=== PATIENT | female | born 1955 | race Caucasian/White ===

== ENCOUNTER → 2017-06-08 | Outpatient (CLI) | payer BC | END | disposition home or self-care (01) | LOC: MAMMO 09:15 | DX: Z12.31 Encounter for screening mammogram for malignant neoplasm of breast (principal) | CPT/HCPCS: G0202 ==

== ENCOUNTER → 2017-06-19 | Outpatient (CLI) | payer BC | END | disposition home or self-care (01) | LOC: MAMMO 09:44 | DX: R92.8 Other abnormal and inconclusive findings on diagnostic imaging of breast (principal) | CPT/HCPCS: 77065 ==

== ENCOUNTER → 2018-09-26 | Outpatient (CLI) | payer BC ==
--- NOTE | 2018-09-26 09:49 | RAD ---
DATE: 09/26/2018 EXAM: MAMMO DOLORES SCREENING BILATERAL HISTORY: Routine screening COMPARISON: 06/08/2017, 06/19/2017 This study was interpreted with the benefit of Computerized Aided Detection (CAD). Breast Density: SCATTERED The breast parenchyma shows scattered fibroglandular densities. Breast parenchyma level B. FINDINGS: 2-D and 3-D tomosynthesis imaging was performed in CC and MLO projections. There is an unchanged small nodule in the posteromedial aspect of the right breast. No new or enlarging breast densities are seen. No suspicious microcalcifications are evident. IMPRESSION: Stable mammograms without evidence of malignancy. BI-RADS CATEGORY: 2 BENIGN FINDING(S) RECOMMENDED FOLLOW-UP: 12M 12 MONTH FOLLOW-UP PQRS compliance statement: Patient information was entered into a reminder system with a target due date for the next mammogram. Mammography is a sensitive method for finding small breast cancers, but it does not detect them all and is not a substitute for careful clinical examination. A negative mammogram does not negate a clinically suspicious finding and should not result in delay in biopsying a clinically suspicious abnormality. "Our facility is accredited by the [employer] Mammography [employer]."
== END | disposition home or self-care (01) ==
LOC: MAMMO 08:16
PROVIDERS: ATTEND Family Medicine
DX: Z12.31 Encounter for screening mammogram for malignant neoplasm of breast (principal)
CPT/HCPCS: 77063; 77067

== ENCOUNTER → 2019-09-23 | Outpatient (CLI) | payer BC ==
--- NOTE | 2019-09-23 09:38 | KCIC ---
Transabdominal and transvaginal ultrasound of the pelvis. HISTORY: Abnormal vaginal bleeding, N 93.9 Transabdominal ultrasound was performed. Bladder was not well-distended. There is a uterine mass.. Ovaries are not identified. Transvaginal imaging was performed for further evaluation. There is a central mass within the uterus measuring 4.3 x 4.1 cm. A large leiomyoma is most likely although a endometrial tumor is possible. There is flow within the lesion with color imaging. The lesion obscures the endometrium. Right ovary was identified measuring 1.4 x 1.9 x 1.4 cm. There is flow in the right ovary with color imaging and Doppler. Left ovary measured 1.7 x 1.7 x 1.9 cm. Left ovary was poorly visualized. There was flow with Doppler in the left ovary. IMPRESSION: 1. Central uterine mass, leiomyoma or endometrial cancer are possible. 2. Normal ovaries. Electronically signed by: Raymond Viera MD (09/23/2019 9:35 AM) [id number]
== END | disposition home or self-care (01) ==
LOC: KCIC US 08:38
PROVIDERS: ATTEND Nurse Practitioner Family
DX: N95.0 Postmenopausal bleeding (principal); Z87.42 Personal history of other diseases of the female genital tract
CPT/HCPCS: 76830; 76856

== ENCOUNTER → 2019-10-30 | Outpatient (CLI) | payer BC ==
[~2019-10-30] MED LIST: DOCU-109 PO; IBUP-1060 PO; LISI1TAB20 PO; MONT10TA49 PO; OXYC1TAB15 PO; SERT50TA PO; SIMV40TA18 PO
[2019-10-30 13:51] LABS: BASO # 0.1 x10^3/uL (0.0-0.2); BASO % 1 % (0-3); EOS # 0.1 x10^3/uL (0.0-0.7); EOS % 2 % (0-3); HEMATOCRIT 39.4 % (36.0-47.0); HEMOGLOBIN 13.1 g/dL (12.0-15.5); LYMPH # 1.5 x10^3/uL (1.0-4.8); LYMPH % 25 % (24-48); MEAN CORPUSCULAR HEMOGLOBIN 27 pg (25-35); MEAN CORPUSCULAR HGB CONC 33 g/dL (31-37); MEAN CORPUSCULAR VOLUME 82 fL (79-100); MONO # 0.6 x10^3/uL (0.0-1.1); MONO % 10 % (0-9); NEUT # 3.8 x10^3/uL (1.8-7.7); NEUT % 62 % (31-73); PLATELET COUNT 272 x10^3/uL (140-400); RED BLOOD COUNT 4.81 x10^6/uL (3.50-5.40); RED CELL DISTRIBUTION WIDTH 14.1 % (11.5-14.5)
[2019-10-30 14:05] LABS: CALCIUM 9.3 mg/dL (8.5-10.1); GFR 56.2; POTASSIUM 3.3 mmol/L (3.5-5.1)
== END | disposition home or self-care (01) ==
LOC: SURGPAT 12:55
PROVIDERS: ATTEND Obstetrics & Gynecology
DX: N95.0 Postmenopausal bleeding (principal)
CPT/HCPCS: 36415; 80048; 85025; U0003-CS

== ENCOUNTER 2019-11-04 06:03 | Observation (INO) | payer BC ==
[~2019-11-04] VITALS: Ht 151.1 cm; Wt 78.0 kg
[2019-11-04] VITALS (11 sets, daily range): BP systolic 88–105; BP diastolic 37–59
[~2019-11-04 06:03] MED LIST changes: +CLINDAMYCIN 900MG PREMIX 50 ML IV PRN; +DEXTROSE 5% IV PRN; -DOCU-109 PO; +GENTAMICIN SULFATE IV PRN; -IBUP-1060 PO; -OXYC1TAB15 PO
[2019-11-04] MEDS: IV RINGERS,LACTATED 1000ML 1,000 ML IV SCH ×2 (06:49→10:28)
[2019-11-04] MEDS ORDERED: LIDOCAINE 1% PF 2 ML VIAL. ID PRN (07:00)
[2019-11-04] MEDS ORDERED: ONDANSETRON PF 4 MG/2 ML VIAL. IV PRN (07:00)
[2019-11-04] MEDS ORDERED: fentaNYL PF VIAL 100 MCG/2 ML VIAL IV PRN ×2 (07:00)
[2019-11-04] MEDS ORDERED: PROCHLORPERAZINE 10 MG/2 ML VIAL. IV PRN (07:00)
[2019-11-04] MEDS ORDERED: fentaNYL PF VIAL 250 MCG/5 ML VIAL ONE (07:33)
[2019-11-04] MEDS ORDERED: ROCURONIUM 50 MG/5 ML VIAL. ONE (07:33)
[2019-11-04] MEDS ORDERED: DEXAMETHASONE SOD PHOS 4 MG/ML VIAL ONE (08:04)
[2019-11-04] MEDS ORDERED: SEVOFLURANE > 120 MINUTES. IH ONE (08:04)
[2019-11-04] MEDS ORDERED: ONDANSETRON PF 4 MG/2 ML VIAL. ONE (08:04)
[2019-11-04] MEDS ORDERED: LIDOCAINE 2% PF 5 ML VIAL. ONE (08:04)
[2019-11-04] MEDS ORDERED: PROPOFOL 10 MG/ML (20ML) VIAL. IV ONE (08:04)
[2019-11-04] MEDS ORDERED: GLYCOPYRROLATE 1 MG/5 ML VIAL. ONE (09:25)
[2019-11-04] MEDS ORDERED: NEOSTIGMINE METHYLSULFATE 5 MG/5 ML SYRINGE. ONE (09:25)
[2019-11-04] MEDS ORDERED: IV NORMAL SALINE 1000ML BAG 1,000 ML IV SCH (09:31)
[2019-11-04] MEDS ORDERED: IV DEXTROSE 5 %-0.45 % NACL 1,000 ML IV SCH (09:31)
[2019-11-04] MEDS ORDERED: IBUPROFEN 200 MG TABLET. PO PRN (09:45)
[2019-11-04] MEDS ORDERED: diphenhydrAMINE HCL 25 MG CAPSULE PO PRN (09:45)
[2019-11-04] MEDS ORDERED: NALOXONE 0.4 MG/ML VIAL. IV PRN (09:45)
[2019-11-04] MEDS ORDERED: KETOROLAC 15 MG/ML VIAL. IV PRN (09:45)
[2019-11-04] MEDS ORDERED: DEXTROSE 50% 25 GM / 50ML DISP.SYRIN. IV PRN (09:45)
[2019-11-04] MEDS ORDERED: diphenhydrAMINE 50 MG/ML VIAL IV PRN (09:45)
[2019-11-04] MEDS ORDERED: MORPHINE SULFATE 2 MG/ML VIAL. IV PRN ×2 (09:45)
[2019-11-04] MEDS ORDERED: oxyCODONE/APAP 5/325 1 TAB TABLET PO PRN (09:45)
[2019-11-04] MEDS ORDERED: 0.9 % SODIUM CHLORIDE 10 ML DISP.SYRIN. IV PRN (09:45)
[2019-11-04] MEDS ORDERED: KETOROLAC 30 MG/ML VIAL. ONE (10:27)
--- NOTE | 2019-11-04 11:06 | PDOC4 ---
OPERATIVE NOTE: PreOp Dx: 1. PMB, 2. Uterine mass, 3. Uterine polyp, 4. s/p BTL PostOp Dx: same Procedure: LAVH/BS0 Surgeon: Christina Alvarez Anesthesia: GETA EBL: 200cc Fluids: 1000 UOP: 100 (clear) Complications: none Findings: Post tubal changes, Nml appearing uterus and ovaries. Path: Uterus, cervix, tubes, and ovaries SERGEI ALVAREZ MD November 04, 2019 11:06
--- NOTE | 2019-11-04 11:42 | OP ---
DATE OF SURGERY: 11/04/2019 PREOPERATIVE DIAGNOSES: 1. Postmenopausal bleeding. 2. Uterine mass. 3. Uterine polyps. 4. Status post tubal ligation. POSTOPERATIVE DIAGNOSES: 1. Postmenopausal bleeding. 2. Uterine mass. 3. Uterine polyps. 4. Status post tubal ligation. PROCEDURE: Laparoscopic-assisted vaginal hysterectomy with bilateral salpingo-oophorectomy. SURGEON: Yuri Alvarez MD ANESTHESIA: General endotracheal intubation. ESTIMATED BLOOD LOSS: 200 mL. FLUIDS: 1000 mL. URINE OUTPUT: 100 mL. COMPLICATIONS: None. FINDINGS: Post-tubal changes with normal-appearing uterus and ovaries. PATHOLOGY: Cervix, uterus, tubes, and ovaries. DESCRIPTION OF PROCEDURE: The patient was taken to the operating room where general endotracheal intubation was obtained without difficulty. The patient was prepped and draped in a normal sterile fashion. Attention was first turned to the vagina where a speculum was placed to visualize the cervix. Anterior lip of the cervix was then grasped with a single tooth tenaculum. An acorn uterine manipulator was then placed into the cervix. At that point, the speculum was removed. A Vinson catheter was then placed. Attention was then turned to the abdomen where a 5-mm skin incision was made in the infraumbilical fold. A Veress needle was introduced into the intra-abdominal cavity. The intraabdominal cavity was insufflated to 15 mmHg. Once it had been sufficiently insufflated, the Veress needle was removed and a 5-mm trocar was then placed. Intraabdominal placement was confirmed with the laparoscope. At that point, survey of the pelvis revealed normal anatomy with the exception of post-tubal changes. The uterine mass was not appreciated during the survey. At that point, a second trocar was then placed on the left approximately two-thirds between the ischial spine and the umbilicus, first by making a 5-mm skin incision followed by placing the trocar under direct visualization of the laparoscope. Attention was then turned to the right side where a 5-mm skin incision was placed approximately two-thirds between the ischial spine and the umbilicus. Once this had been made, the 5-mm trocar was then placed under direct visualization of the laparoscope. Attention was first turned to the left where the left tube was grasped and elevated. At that point, the ovarian vessels were easily identified. The LigaSure device was used to coagulate and cut through the ovarian vessels to reach the uterine pedicles. At that point, the LigaSure device was used to cut through the round ligament. Once the round ligament and the ovarian pedicles were ligated, the LigaSure device was used to serially coagulate and cut the uterine pedicles to the level of the uterine artery. At that point, the peritoneum was undermined to allow for the creation of a bladder flap. Bladder flap was then brought to the midline. Additional bites were then taken of the uterine pedicles on the left with the LigaSure device. At that point, attention was then turned to the right where again the right tube was then grasped and elevated to allow for identification of the right ovarian pedicle. The LigaSure device was used to coagulate and cut the ovarian pedicle. Once this was free, the right round ligament was then coagulated and cut. At that point, the uterine pedicles were then serially coagulated and cut with the LigaSure device to the level of the uterine arteries. At that point, the peritoneum was undermined on the right to complete the bladder flap. Once this had been accomplished, additional bites were then taken of the right uterine pedicles. Once good hemostasis was noted, all the instruments were removed and attention was then turned to the vagina where the cervix was circumferentially cut with the Bovie device. At that point, the pubovesicocervical fascia was then dissected from the bladder with Metzenbaum scissors. Once the anterior cul-de-sac had been entered, attention was then turned to the posterior cul-de-sac where Corey scissors were used to enter the peritoneum posteriorly. At that point, the Mona clamps were used to grasp the left uterosacral ligament. This was then cut and tagged with 0 Vicryl. This was performed on the right side where the uterine-sacral ligament was then grasped with a Mona clamp, cut and tagged. Once this had been performed, the uterus was serially clamped, cut, and tied until all pedicles were free. At that point, the uterus was attempted to be delivered. Due to the size of the uterus and the vagina, the amount of traction necessary for the uterus to be removed caused tearing of the cervix from the uterus. The uterus was then grasped with the Leahey clamps and was able to be delivered. Due to the amount of force, the right tube was sheared from the uterus. It was retrieved and sent with the rest of the specimen. Due to the serosal tears, the fibroid could be identified and appeared benign in state. Once the uterus was delivered, good hemostasis was noted. The vaginal cuff was then closed first by making a jqwgfp-nm-lopzh stitch on the left lateral edge with the second pass including the left uterosacral ligament. This was then tagged. Attention was then turned to the right side of the vaginal cuff where a edvxoj-un-tejrv stitch was then placed at the lateral edge with the second pass including the right uterosacral ligament. Two additional ienyez-is-cqbto stitches were used to close the remainder of the cuff. The cuff was then irrigated. Good hemostasis was noted. All the stitches were cut. Attention was then turned to the abdomen once again. The abdomen was insufflated once again. Survey of the vaginal cuff revealed good hemostasis. The ureters were then observed to be peristalsing. The pelvis was then irrigated. All the instruments were removed as well as the trocars. The laparoscopic incisions were then closed with 4-0 Monocryl. At that point, the patient tolerated the procedure well and was taken to the recovery room in stable condition. Sponges, laps, and needles were correct x 3. YURI ALVAREZ MD DR: BLAKE/hope JOB#: [id number] / [id number] AIXA
[2019-11-04] MEDS ORDERED: DOCUSATE SODIUM 100 MG CAPSULE. PO SCH (21:00)
[2019-11-04] MEDS: oxyCODONE/APAP 5/325 1 TAB TABLET PO PRN (22:45)
[2019-11-05] MEDS: oxyCODONE/APAP 5/325 1 TAB TABLET PO PRN ×3 (02:57→14:01)
[2019-11-05 03:01] VITALS: BP 99/44
[2019-11-05 05:54] LABS: BASO % 0 % (0-3); EOS % 0 % (0-3); HEMATOCRIT 32.4 % (36.0-47.0); LYMPH % 12 % (24-48); MEAN CORPUSCULAR HEMOGLOBIN 28 pg (25-35); MEAN CORPUSCULAR HGB CONC 34 g/dL (31-37); MEAN CORPUSCULAR VOLUME 83 fL (79-100); MONO # 0.8 x10^3/uL (0.0-1.1); MONO % 10 % (0-9); NEUT # 6.5 x10^3/uL (1.8-7.7); NEUT % 78 % (31-73); PLATELET COUNT 232 x10^3/uL (140-400); RED BLOOD COUNT 3.93 x10^6/uL (3.50-5.40); RED CELL DISTRIBUTION WIDTH 14.3 % (11.5-14.5); WHITE BLOOD COUNT 8.3 x10^3/uL (4.0-11.0)
[2019-11-05 06:13] LABS: CALCIUM 8.4 mg/dL (8.5-10.1); GFR 56.2
[2019-11-05 07:21] VITALS: BP 103/43
[2019-11-05] MEDS ORDERED: OXYC1TAB15 PO (08:39)
[2019-11-05] MEDS ORDERED: IBUP-1060 PO (08:39)
[2019-11-05] MEDS ORDERED: DOCU-109 PO (08:39)
--- NOTE | 2019-11-05 10:15 | PDOC ---
DIRECTOR OF ENTERPRISE ARCHITECTURE PROGRESS NOTE Subjective: Pt with good pain control. Aslhey PO. Vinson removed this am, yet to void. Objective: Objective: dressing dry Vital Signs: Vital Signs Date Time Temp Pulse Resp B/P (MAP) Pulse Ox O2 Delivery O2 Flow Rate FiO2 11/04/19 09:45 Mask 10 11/04/19 09:45 97.1 75 20 88/55 100 97.1 Vital Signs Date Time Temp Pulse Resp B/P (MAP) Pulse Ox O2 Delivery O2 Flow Rate FiO2 11/05/19 09:17 18 11/05/19 07:21 98.3 67 103/43 (63) 95 Room Air 98.3 11/04/19 11:30 2.0 Labs: Laboratory Tests Test 11/05/19 04:40 11/05/19 05:45 White Blood Count 8.3 x10^3/uL (4.0-11.0) Red Blood Count 3.93 x10^6/uL (3.50-5.40) Hemoglobin 11.0 g/dL (12.0-15.5) L Hematocrit 32.4 % (36.0-47.0) L Mean Corpuscular Volume 83 fL (79-100) Mean Corpuscular Hemoglobin 28 pg (25-35) Mean Corpuscular Hemoglobin Concent 34 g/dL (31-37) Red Cell Distribution Width 14.3 % (11.5-14.5) Platelet Count 232 x10^3/uL (140-400) Neutrophils (%) (Auto) 78 % (31-73) H Lymphocytes (%) (Auto) 12 % (24-48) L Monocytes (%) (Auto) 10 % (0-9) H Eosinophils (%) (Auto) 0 % (0-3) Basophils (%) (Auto) 0 % (0-3) Neutrophils # (Auto) 6.5 x10^3/uL (1.8-7.7) Lymphocytes # (Auto) 1.0 x10^3/uL (1.0-4.8) Monocytes # (Auto) 0.8 x10^3/uL (0.0-1.1) Eosinophils # (Auto) 0.0 x10^3/uL (0.0-0.7) Basophils # (Auto) 0.0 x10^3/uL (0.0-0.2) Sodium Level 138 mmol/L (136-145) Potassium Level 4.0 mmol/L (3.5-5.1) Chloride Level 101 mmol/L (98-107) Carbon Dioxide Level 30 mmol/L (21-32) Anion Gap 7 (6-14) Blood Urea Nitrogen 15 mg/dL (7-20) Creatinine 1.0 mg/dL (0.6-1.0) Estimated GFR (Cockcroft-Gault) 56.2 Glucose Level 115 mg/dL (70-99) H Calcium Level 8.4 mg/dL (8.5-10.1) L Laboratory Tests 11/05/19 04:40 Laboratory Tests 11/05/19 05:45 Laboratory Tests 11/05/19 04:40 11/05/19 05:45 Physical Exam: GENERAL: No apparent distress. Alert and oriented. HEENT: Head normocephalic, atraumatic. NECK: Supple LUNGS: Clear to auscultation. HEART: RRR, S1, S2 present, pulses intact ABDOMEN: Soft, positive bowel sounds. EXTREMITIES: No cyanosis or edema. NEUROLOGIC: Normal speech, normal tone PSYCHIATRIC: Normal affect, normal mood. SKIN: No ulceration. Assessment & Plan: A/P 64y POD #1 s/p LAVH/BSO 1.) PO doing well, path pending 2.) Indication PMB, uterine mass, uterine polyp 3.) Hgb 13.1 -> 11.0 4.) Menopause - on Sertraline 5.) HTN, hypercholesterolemia 6.) Cont PO care SERGEI ALVAREZ MD November 05, 2019 10:15
[2019-11-05 11:12] VITALS: BP 139/49
[2019-11-05 15:30] VITALS: BP 123/59
--- NOTE | 2019-11-05 16:00 | NUR ---
Discharge instructions given to pt. Pt verbalized understanding. Pt discharged home via wheelchair to waiting outside to take pt home.
--- NOTE | 2019-11-05 18:06 | PATHOLOGY ---
[facility] Accession Number: [id number] . 01 Material submitted: . uterus - UTERUS, LEFT AND RIGHT FALLOPIAN TUBES AND OVARIES. Modifiers: bilateral . 01 Clinical history: . Postmenopausal bleeding . 02 Diagnosis: Uterine corpus with attached left fallopian tube and ovary, detached uterine cervix, and detached right fallopian tube and ovary, laparoscopic assisted vaginal hysterectomy with bilateral salpingo-oophorectomy: - Leiomyomas, uterine corpus, submucosal/intramural/subserosal, multiple, the largest measuring 4.7 cm in greatest dimension. - Squamous metaplasia of endocervix, focal. - Nabothian cysts, cervix. - Atrophic endometrium. - Small sessile endometrial polyp. - Adenomyosis, uterine corpus, focal. - Right paratubal endometriosis, focal. - Focal endometriosis of right ovary. - Small simple serous cysts of bilateral ovaries, multiple. (JPM:leonard; 11/05/2019) . . [facility] [place] 11/05/2019 1450 Local . 02 Comment: There is no atypia or evidence of malignancy. (JPM:leonard; 11/05/2019) . 02 Electronically signed: . Conrad Carlisle MD, Pathologist NPI- [id number] . 01 Gross description: . The specimen is received in formalin labeled " Jodee Corrales, uterus, L fallopian tube, L ovary, cervix, R fallopian tube, R ovary". Received is a 100 g previously incised/torn uterine corpus measuring 6.6 x 6.5 x 4.0 cm with an attached adnexa weighing 5 g, detached cervical stump weighing 16 g, and detached adnexa weighing 5 g. The uterine serosa is pink-goetz, disrupted and wrinkled in appearance. The uterine corpus cannot be oriented. A large fibroid is identified attached to the inside of the uterine corpus measuring 4.7 cm. Opening of the uterine corpus reveals pale goetz, glistening endometrium, however, the cavity is not distinct. The endometrium measures 0.1 cm in thickness. Serial sectioning reveals a goetz-pink, trabeculated myometrium measuring up to 2.0 cm in thickness displaying two subserosal and submucosal fibroids measuring 0.4 cm each. Sectioning through the large fibroid reveals white, trabeculated cut surfaces with no gross evidence of degeneration or necrosis. . The cervical stump measures 5.3 x 2.4 x 2.0 cm in greatest dimensions and cannot be oriented. The 0.5 cm cervical os is surrounded by pink-morgan, smooth ectocervical mucosa. One half of the paracervical margin is inked black. The cervix is opened to reveal a pale goetz, corrugated to cystic endocervical canal measuring 4.1 cm in length. A fibroid is identified at the top of the endocervix. . The attached adnexa consists of a fimbriated fallopian tube measuring 4.9 cm in length by 0.5 cm in diameter attached to a 2.4 x 1.3 x 0.7 cm ovary. Sectioning through the fallopian tube reveals a pinpoint lumen. Sectioning through the ovary reveals pale goetz, normal ovarian stroma. . The detached adnexa consists of a fimbriated fallopian tube measuring 3.4 cm in length by 0.5 cm in diameter attached to a 2.7 x 1.3 x 1.3 cm ovary. Sectioning through the fallopian tube reveals a patent lumen. Sectioning through the ovary reveals pale goetz, normal ovarian stroma. The specimen is submitted representatively as follows: . A1-A2 cervix and opposite cervix A3-A4 endomyometrium and opposite endomyometrium A5 international representative sections of subserosal, submucosal fibroids, as well as fibroid at the top of the endocervical canal A6 international representative sections of large fibroid A7 attached adnexa A8 detached adnexa. (CAA; 11/04/2019) QA/[facility] 11/05/2019 1444 Local . 02 Pathologist provided ICD-10: D25.0, D25.1, D25.2, N88.8, N84.0, N80.0, N83.201, N83.202 . 02 CPT . 359829 Specimen Comment: A courtesy copy of this report has been sent to [phone], [phone] Specimen Comment: [id number] Specimen Comment: Report sent to / DR CHASE Performed at: 01 [facility] [address], [place] [id number] MD Walter Banks MD Phone: [phone] Performed at: 02 [facility] [address] [place], [place] [id number] MD Conrad Carlisle MD Phone: [phone]
--- NOTE | 2019-11-06 10:22 | DS ---
DATE OF DISCHARGE: 11/05/2019 ADMISSION DIAGNOSES: 1. Postmenopausal bleeding with thickened endometrial stripe. 2. Uterine mass. 3. Uterine polyp. 4. Status post bilateral tubal ligation. 5. PENICILLIN ALLERGY. 6. Hypertension. 7. Hypercholesterolemia. DISCHARGE DIAGNOSES: 1. Postmenopausal bleeding with thickened endometrial stripe. 2. Uterine mass. 3. Uterine polyp. 4. Status post bilateral tubal ligation. 5. PENICILLIN ALLERGY. 6. Hypertension. 7. Hypercholesterolemia. PROCEDURE: Laparoscopic-assisted vaginal hysterectomy with bilateral salpingo-oophorectomy. BRIEF HOSPITAL COURSE: The patient is a 64-year-old 3, para 3-0-0-3, who presented for scheduled surgery. The patient originally presented to the office on 09/29 for evaluation of postmenopausal bleeding. Prior to visit, the patient had underwent an ultrasound revealing a central mass in the uterus measuring 4.3 x 4.1 cm. It was thought to be most likely a large leiomyoma, but Radiology could not rule out a possible endometrial tumor. An endometrial biopsy was performed in the office. At the time of biopsy, it was noted that the patient had a polyp exiting the cervical os that was biopsied as well. Both of which returned back negative. At the followup appointment on 10/06, the patient's treatment options were reviewed. Due to the uncertainty of the uterine mass being a possible sarcoma, the patient was leaning towards hysterectomy. Also, at that visit, we discussed the risks, benefits and alternatives of bilateral salpingo- oophorectomy. Since the patient was greater than 45 years old, decision was made to remove the ovaries along with the uterus. The patient underwent said procedure on 11/04/2019. See operative note for full detail. By postoperative day #1, the patient was meeting all discharge criteria and desired discharge home. Of note, the patient's hemoglobin prior to the procedure was 13.1 and postop was found to be 11.0. DISCHARGE INSTRUCTIONS: The patient was told not to lift anything greater than 20 pounds. Pelvic rest for [address] on narcotics. CALL IF: The patient is to call if she had fevers, chills, nausea, vomiting, abdominal pain or any additional questions or concerns. FOLLOWUP APPOINTMENT: The patient was to follow up on 11/11/2019 at 10:00 for a postop appointment. DISCHARGE MEDICATIONS: The patient was given a prescription for Percocet 5; 15 pills, Motrin 800 mg; 30 pills and Colace 100 mg; 30 pills. SERGEI ALVAREZ MD DR: BLAKE/hope JOB#: [id number] / [id number] AIXA
== END 2019-11-05 16:00 | disposition home or self-care (01) ==
LOC: SURG 06:03 → 3 NORTH 10:18
PROVIDERS: ADMIT Obstetrics & Gynecology; ATTEND Obstetrics & Gynecology
DX: N95.0 Postmenopausal bleeding (principal); I10 Essential (primary) hypertension; N84.0 Polyp of corpus uteri; E78.00 Pure hypercholesterolemia, unspecified; Z88.0 Allergy status to penicillin; Z79.899 Other long term (current) drug therapy
CPT/HCPCS: 36415; 58552; 80048; 85025; G0378; G0379; J1100; J1885; J2405; J2704; J2710; J3010; J3490; J7030; J7042; J7120; 88307; A4461

== ENCOUNTER → 2020-12-20 | Outpatient (CLI) | payer BC ==
[~2020-12-20] MED LIST changes: -CLINDAMYCIN 900MG PREMIX 50 ML IV PRN; -DEXTROSE 5% IV PRN; +DOCU-109 PO; -GENTAMICIN SULFATE IV PRN; +IBUP-1060 PO; +OXYC1TAB15 PO
--- NOTE | 2020-12-20 10:35 | RAD ---
EXAM: Bilateral digital screening mammogram with tomosynthesis. HISTORY: 65-year-old female presents for screening mammography. TECHNIQUE: Full-field digital craniocaudal and mediolateral oblique 2D and 3D tomosynthesis images of both breasts are obtained for evaluation. Computer aided detection was applied. COMPARISON: 09/26/2018, 05/12/2017 BREAST PARENCHYMAL DENSITY: Level B - Scattered fibroglandular densities. FINDINGS: There is no new suspicious mass, microcalcification or region of architectural distortion. There are multiple stable areas of nodularity and asymmetry within both breasts. There is a small antelmo ign-appearing circumscribed nodular density within the 3:00 position of the left breast at anterior t o mid depth which is minimally increased compared to the most recent comparison study and similar com pared to the study performed 05/12/2017. This favors a benign etiology such as a intramammary lymph no de. IMPRESSION: BI-RADS Category 2: Benign finding(s). RECOMMENDATION: Annual mammography is recommended. If your mammogram demonstrates that you have dense breast tissue, which could hide abnormalities, and if you have other risk factors for breast cancer that have been identified, you might benefit from s upplemental screening tests that may be suggested by your ordering physician. Dense breast tissue, i n and of itself, is a relatively common condition. This information is not provided to cause undue c oncern, but rather to raise your awareness and to promote discussion with your physician regarding th e presence of other risk factors, in addition to dense breast tissue. A report of your mammography re sults will be sent to you and your physician. You should contact your physician if you have any ques tions or concerns regarding this report. Mammography is a sensitive method for finding small breast cancers, but it does not detect them all a nd is not a substitute for careful clinical examination. A negative mammogram does not negate a clin ically suspicious finding and should not result in delay in biopsying a clinically suspicious abnorma lity. PQRS compliance statement - Patient information was entered into a reminder system with a target due date for the next mammogram. "Our facility is accredited by the [employer] Mammography [employer]." Electronically signed by: Areli Petty MD (12/20/2020 10:32 AM) [id number]
== END ==
LOC: MAMMO 08:53
PROVIDERS: ATTEND Nurse Practitioner Gerontology
DX: Z12.31 Encounter for screening mammogram for malignant neoplasm of breast (principal)
CPT/HCPCS: 77063; 77067